=== PATIENT | female | born 1985 | race Caucasian/White ===

== ENCOUNTER 2017-03-21 02:55 | Inpatient (IN) | payer MEDICAID ==
[2017-03-21] MEDS ORDERED: Misoprostol 25 MCG (1/4 of 100 MCG) Tab ONE (07:47)
[2017-03-21] MEDS: Misoprostol 25 MCG (1/4 of 100 MCG) Tab VAG SCH ×2 (07:50→11:15)
--- NOTE | 2017-03-21 08:00 | PCM.LDHP ---
L&D History of Present Illness - General Date of Service: 03/21/17 Admit Problem/Dx: Admission Diagnosis/Problem Admission Diagnosis/Problem Source of Information: Patient History Limitations: Reports: No Limitations - History of Present Illness Introduction:: 31 y/o ALIYA 03/28/2017 EGJoann [id number] presented to L&D for induction GBS negative. Lives in [place]. Blood type AB antibody screen negative Rh+ initial hemoglobin hematocrit on 10/17/1711.2/35.7 platelets 334,000. Rubella immune serology nonreactive original urine culture showed Gardnerella vaginalis treated. Hepatitis B surface antigen and HIV negative. GC and chlamydia probe negative. One hour OB glucose screen 111/16/17/119. Hemoglobin hematocrit 11.2 and 33.5 platelets 349,000. Group B strep negative as noted above. Plan induction and delivery. 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 [employer]IVE History: Reports: Social & Family History - Family History Endocrine/Metabolic: Reports: Diabetes, type II (Mother) - Tobacco Use Smoking Status *Q: Current Every Day Smoker Years of Tobacco use: 12 Packs/Tins Daily: 0.1 - Recreational Drug Use Recreational Drug Use: No H&P Review of Systems - Review of Systems: Review Of Systems: See Below General: Reports: No Symptoms HEENT: Reports: No Symptoms Pulmonary: Reports: No Symptoms Cardiovascular: Reports: No Symptoms Gastrointestinal: Reports: No Symptoms Genitourinary: Reports: No Symptoms Musculoskeletal: Reports: No Symptoms Skin: Reports: No Symptoms Psychiatric: Reports: No Symptoms Neurological: Reports: No Symptoms Hematologic/Lymphatic: Reports: No Symptoms Immunologic: Reports: No Symptoms L&D Exam - Exam Exam: See Below - OB Specific Fundal Height In cm: 39 Movement: Active Heart Tones: Present Heart Tones per Min: 135 Heart Rate (FHR) Variability: Moderate (6-25 bmp) Presentation: Vertex - Lazaro Score Lazaro Score Cervix Position: Posterior Lazaro Score Consistency: Soft Lazaro Score Effacement: 31-50% Lazaro Score Dilation: 1-2 cm Lazaro Score Infant's Station: -2 Lazaro Score Total: 5 - Exam General: Alert, Oriented HEENT: Conjunctiva Clear, Mucosa Moist & Rumsey, TMs Clear, PERRLA Neck: Supple, Trachea Midline Lungs: Clear to Auscultation, Normal Respiratory Effort Cardiovascular: Regular Rate, Regular Rhythm GI/Abdominal Exam: Normal Bowel Sounds, Soft, Non-Tender, No Organomegaly, No Distention, No Abnormal Bruit, No Mass, Pelvis Stable Genitourinary: Normal external exam, Normal bimanual exam, Normal speculum exam Extremities: Normal Inspection, Normal Range of Motion, Non-Tender, No Pedal Edema, Normal Capillary Refill Skin: Warm, Dry, Intact Neurological: Reflexes Equal Bilateral Psychiatric: Alert, Normal Affect, Normal Mood - Problem List (1) 39 weeks gestation of SNOMED Code(s): 62483298 ICD Code: Z3A.39 - 39 WEEKS GESTATION OF Status: Acute Current Visit: Yes Problem List Initiated/Reviewed/Updated: No Assessment/Plan Comment:: Induction and delivery.
[2017-03-21] MEDS ORDERED: Ondansetron 4 MG/2 ML SDV IVPUSH PRN (08:36)
[2017-03-21] MEDS ORDERED: Lidocaine 1% 50 ML MDV INJECT PRN (08:36)
[2017-03-21] MEDS ORDERED: Aluminum Hydroxide/Magnesium Hydroxide/Simethicone Susp 30 ML Cup PO PRN (08:36)
[2017-03-21] MEDS ORDERED: Nalbuphine 20 MG/1 ML Amp IVPUSH PRN (08:36)
[2017-03-21] MEDS ORDERED: ePHEDrine 50 MG/ML SDV IVPUSH PRN (10:39)
[2017-03-21] MEDS ORDERED: fentaNYL 100 MCG/2 ML SDV EPIDUR PRN (10:39)
[2017-03-21] MEDS ORDERED: diphenhydrAMINE 50 MG/ML SDV IVPUSH PRN (10:39)
[2017-03-21] MEDS ORDERED: Bupivacaine/fentaNYL/NS 100 ML Bag EPIDUR SCH (10:45)
--- NOTE | 2017-03-21 10:50 | PCM.PREANE ---
Preanesthetic Assessment - Anesthesia/Transfusion/Family Hx Anesthesia History: No Prior Anesthesia Family History of Anesthesia Reaction: No Transfusion History: No Prior Transfusion(s) - Review of Systems General: No Symptoms Pulmonary: No Symptoms Cardiovascular: No Symptoms Gastrointestinal: Other (Heart burn with pregnacny) Neurological: No Symptoms Other: Reports: None - Physical Assessment O2 Sat by Pulse Oximetry: 99 Respiratory Rate: 16 Vital Signs: Last Vital Signs Temp 36.3 C 03/21/17 08:36 Pulse 84 03/21/17 08:36 Resp 16 03/21/17 08:36 BP 138/87 03/21/17 08:36 Pulse Ox 99 03/21/17 08:36 Height: 1.75 m Weight: 95.753 kg ASA Class: 2 Mental Status: Alert & Oriented x3 Airway Class: Mallampati = 1 Dentition: Reports: Normal Dentition Thyro-Mental Finger Breadths: 3 Mouth Opening Finger Breadths: 3 ROM/Head Extension: Full Lungs: Clear to Auscultation, Normal Respiratory Effort Cardiovascular: Regular Rate, Regular Rhythm - Lab Values: Laboratory Last Values WBC 8.39 K/mm3 (3.98-10.04) 03/21/17 07:30 RBC 3.73 M/mm3 (3.98-5.22) L 03/21/17 07:30 Hgb 11.2 gm/L (11.2-15.7) 03/21/17 07:30 Hct 33.8 % (34.1-44.9) L 03/21/17 07:30 MCV 90.6 fl (79.4-94.8) 03/21/17 07:30 MCH 30.0 pg (25.6-32.2) 03/21/17 07:30 MCHC 33.1 g/dl (32.2-35.5) 03/21/17 07:30 RDW Std Deviation 46.6 fL (36.4-46.3) H 03/21/17 07:30 Plt Count 273 K/mm3 (182-369) 03/21/17 07:30 MPV 11.7 fl (9.4-12.3) 03/21/17 07:30 Neut % (Auto) 74.3 % (34.0-71.1) H 03/21/17 07:30 Lymph % (Auto) 17.9 % (19.3-51.7) L 03/21/17 07:30 [place] % (Auto) 6.0 % (4.7-12.5) 03/21/17 07:30 Eos % (Auto) 1.4 (0.7-5.8) 03/21/17 07:30 Baso % (Auto) 0.2 % (0.1-1.2) 03/21/17 07:30 Neut # (Auto) 6.23 K/mm3 (1.56-6.13) H 03/21/17 07:30 Lymph # (Auto) 1.50 K/mm3 (1.18-3.74) 03/21/17 07:30 [place] # (Auto) 0.50 K/mm3 (0.24-0.36) H 03/21/17 07:30 Eos # (Auto) 0.12 K/mm3 (0.04-0.36) 03/21/17 07:30 Baso # (Auto) 0.02 K/mm3 (0.01-0.08) 03/21/17 07:30 Blood Type AB POSITIVE 03/21/17 07:30 Gel Antibody Screen Negative 03/21/17 07:30 - Allergies Allergies/Adverse Reactions: Allergies Allergy/AdvReac Type Severity Reaction Status Date / Time No Known Allergies Allergy Verified 03/20/17 16:07 - Acknowledgements Anesthesia Type Planned: Epidural Pt an Appropriate Candidate for the Planned Anesthesia: Yes Alternatives and Risks of Anesthesia Discussed w Pt/Guardian: Yes Pt/Guardian Understands and Agrees with Anesthesia Plan: Yes PreAnesthesia Questionnaire - Past Health History Medical/Surgical History: Denies 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: - SUBSTANCE USE Smoking Status *Q: Former Smoker Tobacco Use Within Last Twelve Months: Cigarettes Recreational Drug Use History: No - HOME MEDS Home Medications: Home Meds Vit W-Ca,Fe,FA(<1 mg) [ Vitamins] 1 tab PO DAILY 03/21/17 [ History] - CURRENT (IN HOUSE) MEDS Current Meds: Current Medications Al Hydroxide/Mg Hydroxide (Mag-Al Plus) 30 ml PO Q8H PRN PRN Reason: Heartburn Diphenhydramine HCl (Benadryl) 25 mg IVPUSH Q6H PRN PRN Reason: Pruritis Ephedrine Sulfate (Ephedrine Sulfate) 5 mg IVPUSH ASDIRECTED PRN PRN Reason: Hypotension Fentanyl (Sublimaze) 100 mcg EPIDUR ONETIME PRN PRN Reason: Pain Fentanyl/Bupivacaine HCl (Fentanyl/Bupivacaine/Ns 2 Mcg-0.125% 100 Ml) 100 ml EPIDUR ASDIRECTED [facility] Lactated Ringer's (Ringers, Lactated) 1,000 mls @ 100 mls/hr IV ASDIRECTED [facility] Oxytocin 20 unit/ Lactated (Ringer's) 1,002 mls @ 500 mls/hr IV TITRATE [facility] Lidocaine HCl (Xylocaine 1%) 50 ml INJECT ONETIME PRN PRN Reason: perineal repair Misoprostol (Cytotec) 25 mcg VAG Q3H [facility] Stop: 03/21/17 11:01 Nalbuphine HCl (Nubain) 10 mg IVPUSH Q2H PRN PRN Reason: Pain (moderate 4-6) Ondansetron HCl (Zofran) 4 mg IVPUSH Q4H PRN PRN Reason: Nausea/Vomiting Discontinued Medications Misoprostol (Cytotec) Confirm Administered Dose 25 mcg .ROUTE .STAsseta-MED ONE Stop: 03/21/17 07:48 Last Admin: 03/21/17 09:16 Dose: Not Given
--- NOTE | 2017-03-21 13:11 | PCM.SN ---
- Free Text/Narrative Note: Cervix 1-2, 70% effaced, soft, posterior, vertex-2. Had second dose of Cytotec earlier.
[2017-03-21] MEDS: Lactated Ringers 1,000 ML IV SCH ×3 (13:55→23:12)
[2017-03-21] MEDS ORDERED: Oxytocin/Lactated Ringers 10 UNIT/1,000 ML BAG IV SCH (14:00)
--- NOTE | 2017-03-21 15:24 | PCM.SN ---
- Free Text/Narrative Note: Cervix 2-3/70%/Soft/posterior/vertex -1/-2 Amniotomy 1520 clear fluid. At 2 miu/ min.
[2017-03-21] MEDS ORDERED: Bupivacaine 0.25% 10 ML SDV ONE (22:22)
[2017-03-22] MEDS ORDERED: Lidocaine 1% 50 ML MDV ONE (02:57)
--- NOTE | 2017-03-22 03:20 | PCM.DEL ---
L & D Note - General Info Date of Service: 03/22/17 Mother's Due Date: 03/28/17 - Delivery Note Labor: Augmented by Oxytocin Cervical Ripening Method: Misoprostil (5 g 2) Delivery Outcome: Livebirth (Female liveborn 03/22/17 at 0255 hrs. direct occiput posterior Apgars 10/28 weight 3170 grams 7 pounds) Infant Delivery Method: Spontaneous Vaginal Delivery-Single Infant Delivery Mode: Spontaneous Presentation: Occiput posterior Nuchal Cord: None Prep: Povidone-Iodine (Betadine Anesthesia Type: Local, Epidural Anesthetic: Lidocaine (Xylocaine) 1% Plain Local Anesthetic Volume: 5cc Amniotic Fluid Description: Clear Episiotomy Type: None Laceration: 1st Degree Suture type: Other (Monocryl) Suture size: 3-0 Placenta: Intact, Spontaneous (0301 hrs. 03/22/17) Cord: 3 Vessels Estimated Blood Loss: 250 : Suctioned, Bulb Syringe, Stimulated, Warmed, [place] Used, Warmer Used Provider: Matti Dumont Score 1 min: 9 Score 5 min: 9 - Patient Data Vitals - Most Recent: Last Vital Signs Temp 97.4 F 03/21/17 08:36 Pulse 84 03/21/17 08:36 Resp 16 03/21/17 10:53 BP 138/87 03/21/17 08:36 Pulse Ox 99 03/21/17 10:53 Weight - Most Recent: 211 lb 1.6 oz Lab Results Last 24 Hours: Laboratory Results - last 24 hr 03/21/17 03/21/17 Range/Units 07:30 07:30 WBC 8.39 (3.98-10.04) K/mm3 RBC 3.73 L (3.98-5.22) M/mm3 Hgb 11.2 (11.2-15.7) gm/L Hct 33.8 L (34.1-44.9) % MCV 90.6 (79.4-94.8) fl MCH 30.0 (25.6-32.2) pg MCHC 33.1 (32.2-35.5) g/dl RDW Std Deviation 46.6 H (36.4-46.3) fL Plt Count 273 (182-369) K/mm3 MPV 11.7 (9.4-12.3) fl Neut % (Auto) 74.3 H (34.0-71.1) % Lymph % (Auto) 17.9 L (19.3-51.7) % [facility] % (Auto) 6.0 (4.7-12.5) % Eos % (Auto) 1.4 (0.7-5.8) Baso % (Auto) 0.2 (0.1-1.2) % Neut # (Auto) 6.23 H (1.56-6.13) K/mm3 Lymph # (Auto) 1.50 (1.18-3.74) K/mm3 [facility] # (Auto) 0.50 H (0.24-0.36) K/mm3 Eos # (Auto) 0.12 (0.04-0.36) K/mm3 Baso # (Auto) 0.02 (0.01-0.08) K/mm3 Blood Type AB POSITIVE Gel Antibody Screen Negative Med Orders - Current: Current Medications Al Hydroxide/Mg Hydroxide (Mag-Al Plus) 30 ml PO Q8H PRN PRN Reason: Heartburn Diphenhydramine HCl (Benadryl) 25 mg IVPUSH Q6H PRN PRN Reason: Pruritis Ephedrine Sulfate (Ephedrine Sulfate) 5 mg IVPUSH ASDIRECTED PRN PRN Reason: Hypotension Fentanyl (Sublimaze) 100 mcg EPIDUR ONETIME PRN PRN Reason: Pain Last Admin: 03/21/17 19:17 Dose: 100 mcg Fentanyl/Bupivacaine HCl (Fentanyl/Bupivacaine/Ns 2 Mcg-0.125% 100 Ml) 100 ml EPIDUR ASDIRECTED [facility] Last Admin: 03/21/17 19:19 Dose: 100 ml Lactated Ringer's (Ringers, Lactated) 1,000 mls @ 100 mls/hr IV ASDIRECTED [facility] Last Admin: 03/21/17 23:12 Dose: 100 mls/hr Oxytocin 20 unit/ Lactated (Ringer's) 1,002 mls @ 500 mls/hr IV TITRATE [facility] Oxytocin/Lactated Ringer's (Pitocin In Lr 10 Units/1,000 Ml) 10 unit in 1,000 mls @ 12 mls/hr IV TITRATE [facility]; 2 MUNITS/MIN PRN Reason: Protocol Last Titration: 03/22/17 02:27 Dose: 8 munits/min, 48 mls/hr Lidocaine HCl (Xylocaine 1%) 50 ml INJECT ONETIME PRN PRN Reason: perineal repair Nalbuphine HCl (Nubain) 10 mg IVPUSH Q2H PRN PRN Reason: Pain (moderate 4-6) Last Admin: 03/21/17 18:34 Dose: 10 mg Ondansetron HCl (Zofran) 4 mg IVPUSH Q4H PRN PRN Reason: Nausea/Vomiting Discontinued Medications Lidocaine HCl (Xylocaine 1%) Confirm Administered Dose 50 ml .ROUTE .STK-MED ONE Stop: 03/22/17 02:58 Misoprostol (Cytotec) Confirm Administered Dose 25 mcg .ROUTE .STK-MED ONE Stop: 03/21/17 07:48 Last Admin: 03/21/17 09:16 Dose: Not Given Misoprostol (Cytotec) 25 mcg VAG Q3H [facility] Stop: 03/21/17 11:01 Last Admin: 03/21/17 11:15 Dose: 25 mcg - Problem List & Annotations (1) 39 weeks gestation of SNOMED Code(s): 01151797 Code(s): Z3A.39 - 39 WEEKS GESTATION OF Status: Acute Current Visit: Yes (2) First degree laceration of perineum during delivery, SNOMED Code(s): 093315986 Code(s): O70.0 - FIRST DEGREE PERINEAL LACERATION DURING DELIVERY Status: Acute Current Visit: Yes (3) Occiput posterior presentation of fetus SNOMED Code(s): 84036364 Code(s): O64.0XX0 - OBSTRUCTED LABOR DUE TO INCMPL ROTATION OF HEAD, UNSP Status: Acute Current Visit: Yes Qualifiers: Fetus number: single or unspecified fetus Qualified Code(s): O64.0XX0 - Obstructed labor due to incomplete rotation of head, not applicable or unspecified - Problem List Review Problem List Initiated/Reviewed/Updated: No - My Orders Last 24 Hours: My Active Orders 03/21/17 08:36 Patient Status [ADT] Routine Activity as Tolerated [RC] PFP Communication Order [RC] ASDIRECTED Notify Provider [RC] PFP Notify Provider [RC] PRN Alum Hydrox/Mag Hydrox/Simeth [Mag-Al Plus] 30 ml PO Q8H PRN Lidocaine 1% [Xylocaine 1%] 50 ml INJECT ONETIME PRN Nalbuphine [Nubain] 10 mg IVPUSH Q2H PRN Ondansetron [Zofran] 4 mg IVPUSH Q4H PRN Electronic Heart Tones Ext w TOCO [WOMSER] Routine Electronic Heart Tones Internal [WOMSER] Per Unit Routine Peripheral IV Insertion Adult [OM.PC] Routine Resuscitation Status Routine 03/21/17 08:45 Lactated Ringers [Ringers, Lactated] 1,000 ml IV ASDIRECTED Oxytocin [Pitocin] 20 unit Lactated Ringers [Ringers, Lactated] 1,000 ml IV TITRATE 03/21/17 14:00 Oxytocin/Lactated Ringers [Pitocin in LR 10 Units/1,000 ML] 10 unit in 1,000 ml IV TITRATE 03/21/17 Breakfast Regular Diet [DIET] - Plan Plan:: Induction and delivery.
[2017-03-22] MEDS ORDERED: Acetaminophen 325 MG Tab PO PRN (03:27)
[2017-03-22] MEDS ORDERED: Benzocaine/Menthol 20%-0.5% Spray 56 GM Canister TOP PRN (03:27)
[2017-03-22] MEDS ORDERED: Lanolin 100% Cream 7 GM Tube TOP PRN (03:27)
[2017-03-22] MEDS ORDERED: Witch Hazel Medicated Pads 100/Jar TOP PRN (03:27)
[2017-03-22] MEDS ORDERED: Simethicone 80 MG Tab.Chew PO PRN (03:27)
[2017-03-22] MEDS: Ibuprofen 600 MG Tab PO PRN ×4 (05:04→20:48)
[2017-03-22] MEDS ORDERED: fentaNYL 100 MCG/2 ML SDV IVPUSH ONE (06:17)
[2017-03-22] MEDS ORDERED: Lactated Ringers 1,000 ML IV ONE (06:48)
[2017-03-22] MEDS: Acetaminophen/oxyCODONE 325-5 MG Tab PO PRN ×3 (09:10→18:32)
[2017-03-22] MEDS: Docusate Sodium 100 MG Cap PO PRN (11:17)
--- NOTE | 2017-03-22 14:32 | PCM48HPAN ---
Post Anesthesia Note - EVALUATION WITHIN 48HRS OF ANESTHETIC Vital Signs in Normal Range: Yes Patient Participated in Evaluation: Yes Respiratory Function Stable: Yes Airway Patent: Yes Cardiovascular Function Stable: Yes Hydration Status Stable: Yes Pain Control Satisfactory: No Nausea and Vomiting Control Satisfactory: Yes Mental Status Recovered: Yes - COMMENTS/OBSERVATIONS Free Text/Narrative:: Patient complained of a headache today shortly after her epidural catheter was discontinued. Upon arrival the patient was sleeping on her left lateral side. She did complain of a headache that worsened when she sat up from the supine position. She stated she is photophobic. She stated she has had headaches in the past and this one feels very different from any previous headaches. She also said the pain medication she has been receiving does not help much with resolving the headache at all. Her symptoms sound pretty typical of a PDPH. I mentioned to drink more fluids especially ones with caffeine. I had also mentioned to her about the possibility of a epidural blood patch if her headache increases in intensity and does not resolve itself in a couple days. So far the patient is not interested at all in the blood patch due to her "terrible" experience for the initial insertion. But now she is educated on her options of treatment. Will continue to monitor her tomorrow. Sourav Rhodes, TANVIR
[2017-03-22] MEDS: Cyclobenzaprine 10 MG Tab PO PRN (21:45)
[2017-03-23] MEDS: Acetaminophen/oxyCODONE 325-5 MG Tab PO PRN ×3 (01:53→12:42)
[2017-03-23] MEDS: Docusate Sodium 100 MG Cap PO PRN (01:54)
[2017-03-23 02:13] VITALS: BP 118/62
[2017-03-23] MEDS: Cyclobenzaprine 10 MG Tab PO PRN (08:22)
[2017-03-23] MEDS: Ibuprofen 600 MG Tab PO PRN (10:17)
--- NOTE | 2017-03-23 12:01 | PCM.DCSUM1 ---
Discharge Summary - Hospital Course Free Text/Narrative:: [facility] LIVE L/D Delivery Note Patient Name: JOURDAN SUMNER Date of : 85 Patient Status: Inpatient Attending Provider: Matti Dumont Date: 03/22/17 03:14 Initialization Date: 03/22/17 03:14 L & D Note - General Info Date of Service: 03/22/17 Mother's Due Date: 03/28/17 - Delivery Note Labor: Augmented by Oxytocin Cervical Ripening Method: Misoprostil (5 g 2) Delivery Outcome: Livebirth (Female liveborn 03/22/17 at 0255 hrs. direct occiput posterior Apgars 10/28 weight 3170 grams 7 pounds) Infant Delivery Method: Spontaneous Vaginal Delivery-Single Infant Delivery Mode: Spontaneous Presentation: Occiput posterior Nuchal Cord: None Prep: Povidone-Iodine (Betadine Anesthesia Type: Local, Epidural Anesthetic: Lidocaine (Xylocaine) 1% Plain Local Anesthetic Volume: 5cc Amniotic Fluid Description: Clear Episiotomy Type: None Laceration: 1st Degree Suture type: Other (Monocryl) Suture size: 3-0 Placenta: Intact, Spontaneous (0301 hrs. 03/22/17) Cord: 3 Vessels Estimated Blood Loss: 250 [place]: Suctioned, Bulb Syringe, Stimulated, Warmed, [place] Used, Warmer Used Provider: Matti Dumont Score 1 min: 9 Score 5 min: 9 - Patient Data Vitals - Most Recent: Last Vital Signs Temp 97.4 F 03/21/17 08:36 Pulse 84 03/21/17 08:36 Resp 16 03/21/17 10:53 BP 138/87 03/21/17 08:36 Pulse Ox 99 03/21/17 10:53 Weight - Most Recent: 211 lb 1.6 oz Lab Results Last 24 Hours: Laboratory Results - last 24 hr 03/21/17 03/21/17 Range/Units 07:30 07:30 WBC 8.39 (3.98-10.04) K/mm3 RBC 3.73 L (3.98-5.22) M/mm3 Hgb 11.2 (11.2-15.7) gm/L Hct 33.8 L (34.1-44.9) % MCV 90.6 (79.4-94.8) fl MCH 30.0 (25.6-32.2) pg MCHC 33.1 (32.2-35.5) g/dl RDW Std Deviation 46.6 H (36.4-46.3) fL Plt Count 273 (182-369) K/mm3 MPV 11.7 (9.4-12.3) fl Neut % (Auto) 74.3 H (34.0-71.1) % Lymph % (Auto) 17.9 L (19.3-51.7) % [place] % (Auto) 6.0 (4.7-12.5) % Eos % (Auto) 1.4 (0.7-5.8) Baso % (Auto) 0.2 (0.1-1.2) % Neut # (Auto) 6.23 H (1.56-6.13) K/mm3 Lymph # (Auto) 1.50 (1.18-3.74) K/mm3 [place] # (Auto) 0.50 H (0.24-0.36) K/mm3 Eos # (Auto) 0.12 (0.04-0.36) K/mm3 Baso # (Auto) 0.02 (0.01-0.08) K/mm3 Blood Type AB POSITIVE Gel Antibody Screen Negative Med Orders - Current: Current Medications Al Hydroxide/Mg Hydroxide (Mag-Al Plus) 30 ml PO Q8H PRN PRN Reason: Heartburn Diphenhydramine HCl (Benadryl) 25 mg IVPUSH Q6H PRN PRN Reason: Pruritis Ephedrine Sulfate (Ephedrine Sulfate) 5 mg IVPUSH ASDIRECTED PRN PRN Reason: Hypotension Fentanyl (Sublimaze) 100 mcg EPIDUR ONETIME PRN PRN Reason: Pain Last Admin: 03/21/17 19:17 Dose: 100 mcg Fentanyl/Bupivacaine HCl (Fentanyl/Bupivacaine/Ns 2 Mcg-0.125% 100 Ml) 100 ml EPIDUR ASDIRECTED [facility] Last Admin: 03/21/17 19:19 Dose: 100 ml Lactated Ringer's (Ringers, Lactated) 1,000 mls @ 100 mls/hr IV ASDIRECTED [facility] Last Admin: 03/21/17 23:12 Dose: 100 mls/hr Oxytocin 20 unit/ Lactated (Ringer's) 1,002 mls @ 500 mls/hr IV TITRATE NVAIN Oxytocin/Lactated Ringer's (Pitocin In Lr 10 Units/1,000 Ml) 10 unit in 1,000 mls @ 12 mls/hr IV TITRATE NAVIN; 2 MUNITS/MIN PRN Reason: Protocol Last Titration: 03/22/17 02:27 Dose: 8 munits/min, 48 mls/hr Lidocaine HCl (Xylocaine 1%) 50 ml INJECT ONETIME PRN PRN Reason: perineal repair Nalbuphine HCl (Nubain) 10 mg IVPUSH Q2H PRN PRN Reason: Pain (moderate 4-6) Last Admin: 03/21/17 18:34 Dose: 10 mg Ondansetron HCl (Zofran) 4 mg IVPUSH Q4H PRN PRN Reason: Nausea/Vomiting Discontinued Medications Lidocaine HCl (Xylocaine 1%) Confirm Administered Dose 50 ml .ROUTE .STK-MED ONE Stop: 03/22/17 02:58 Misoprostol (Cytotec) Confirm Administered Dose 25 mcg .ROUTE .STK-MED ONE Stop: 03/21/17 07:48 Last Admin: 03/21/17 09:16 Dose: Not Given Misoprostol (Cytotec) 25 mcg VAG Q3H [facility] Stop: 03/21/17 11:01 Last Admin: 03/21/17 11:15 Dose: 25 mcg - Problem List & Annotations (1) 39 weeks gestation of SNOMED Code(s): 55438564 Code(s): Z3A.39 - 39 WEEKS GESTATION OF Status: Acute Current Visit: Yes (2) First degree laceration of perineum during delivery, SNOMED Code(s): 987050764 Code(s): O70.0 - FIRST DEGREE PERINEAL LACERATION DURING DELIVERY Status: Acute Current Visit: Yes (3) Occiput posterior presentation of fetus SNOMED Code(s): 55034805 Code(s): O64.0XX0 - OBSTRUCTED LABOR DUE TO INCMPL ROTATION OF HEAD, UNSP Status: Acute Current Visit: Yes Qualifiers: Fetus number: single or unspecified fetus Qualified Code(s): O64.0XX0 - Obstructed labor due to incomplete rotation of head, not applicable or unspecified - Problem List Review Problem List Initiated/Reviewed/Updated: No - My Orders Last 24 Hours: My Active Orders 03/21/17 08:36 Patient Status [ADT] Routine Activity as Tolerated [RC] PFP Communication Order [RC] ASDIRECTED Notify Provider [RC] PFP Notify Provider [RC] PRN Alum Hydrox/Mag Hydrox/Simeth [Mag-Al Plus] 30 ml PO Q8H PRN Lidocaine 1% [Xylocaine 1%] 50 ml INJECT ONETIME PRN Nalbuphine [Nubain] 10 mg IVPUSH Q2H PRN Ondansetron [Zofran] 4 mg IVPUSH Q4H PRN Electronic Heart Tones Ext w TOCO [WOMSER] Routine Electronic Heart Tones Internal [WOMSER] Per Unit Routine Peripheral IV Insertion Adult [OM.PC] Routine Resuscitation Status Routine 03/21/17 08:45 Lactated Ringers [Ringers, Lactated] 1,000 ml IV ASDIRECTED Oxytocin [Pitocin] 20 unit Lactated Ringers [Ringers, Lactated] 1,000 ml IV TITRATE 03/21/17 14:00 Oxytocin/Lactated Ringers [Pitocin in LR 10 Units/1,000 ML] 10 unit in 1,000 ml IV TITRATE 03/21/17 Breakfast Regular Diet [DIET] - Plan Plan:: Induction and delivery. HPI Initial Comments: [facility] LIVE L/D Delivery Note Patient Name: JOURDAN SUMNER Date of : 85 Patient Status: Inpatient Attending Provider: Matti Dumont Date: 03/22/17 03:14 Initialization Date: 03/22/17 03:14 L & D Note - General Info Date of Service: 03/22/17 Mother's Due Date: 03/28/17 - Delivery Note Labor: Augmented by Oxytocin Cervical Ripening Method: Misoprostil (5 g 2) Delivery Outcome: Livebirth (Female liveborn 03/22/17 at 0255 hrs. direct occiput posterior Apgars 9/9 weight 3170 grams 7 pounds) Delivery Method: Spontaneous Vaginal Delivery-Single Delivery Mode: Spontaneous Presentation: Occiput posterior Nuchal Cord: None Prep: Povidone-Iodine (Betadine Anesthesia Type: Local, Epidural Anesthetic: Lidocaine (Xylocaine) 1% Plain Local Anesthetic Volume: 5cc Amniotic Fluid Description: Clear Episiotomy Type: None Laceration: 1st Degree Suture type: Other (Monocryl) Suture size: 3-0 Placenta: Intact, Spontaneous (0301 hrs. 03/22/17) Cord: 3 Vessels Estimated Blood Loss: 250 [place]: Suctioned, Bulb Syringe, Stimulated, Warmed, [place] Used, Warmer Used Provider: Matti Dumont Score 1 min: 9 Score 5 min: 9 - Patient Data Vitals - Most Recent: Last Vital Signs Temp 97.4 F 03/21/17 08:36 Pulse 84 03/21/17 08:36 Resp 16 03/21/17 10:53 BP 138/87 03/21/17 08:36 Pulse Ox 99 03/21/17 10:53 Weight - Most Recent: 211 lb 1.6 oz Lab Results Last 24 Hours: Laboratory Results - last 24 hr 03/21/17 03/21/17 Range/Units 07:30 07:30 WBC 8.39 (3.98-10.04) K/mm3 RBC 3.73 L (3.98-5.22) M/mm3 Hgb 11.2 (11.2-15.7) gm/L Hct 33.8 L (34.1-44.9) % MCV 90.6 (79.4-94.8) fl MCH 30.0 (25.6-32.2) pg MCHC 33.1 (32.2-35.5) g/dl RDW Std Deviation 46.6 H (36.4-46.3) fL Plt Count 273 (182-369) K/mm3 MPV 11.7 (9.4-12.3) fl Neut % (Auto) 74.3 H (34.0-71.1) % Lymph % (Auto) 17.9 L (19.3-51.7) % [place] % (Auto) 6.0 (4.7-12.5) % Eos % (Auto) 1.4 (0.7-5.8) Baso % (Auto) 0.2 (0.1-1.2) % Neut # (Auto) 6.23 H (1.56-6.13) K/mm3 Lymph # (Auto) 1.50 (1.18-3.74) K/mm3 [place] # (Auto) 0.50 H (0.24-0.36) K/mm3 Eos # (Auto) 0.12 (0.04-0.36) K/mm3 Baso # (Auto) 0.02 (0.01-0.08) K/mm3 Blood Type AB POSITIVE Gel Antibody Screen Negative Med Orders - Current: Current Medications Al Hydroxide/Mg Hydroxide (Mag-Al Plus) 30 ml PO Q8H PRN PRN Reason: Heartburn Diphenhydramine HCl (Benadryl) 25 mg IVPUSH Q6H PRN PRN Reason: Pruritis Ephedrine Sulfate (Ephedrine Sulfate) 5 mg IVPUSH ASDIRECTED PRN PRN Reason: Hypotension Fentanyl (Sublimaze) 100 mcg EPIDUR ONETIME PRN PRN Reason: Pain Last Admin: 03/21/17 19:17 Dose: 100 mcg Fentanyl/Bupivacaine HCl (Fentanyl/Bupivacaine/Ns 2 Mcg-0.125% 100 Ml) 100 ml EPIDUR ASDIRECTED NAVIN Last Admin: 03/21/17 19:19 Dose: 100 ml Lactated Ringer's (Ringers, Lactated) 1,000 mls @ 100 mls/hr IV ASDIRECTED NAVIN Last Admin: 03/21/17 23:12 Dose: 100 mls/hr Oxytocin 20 unit/ Lactated (Ringer's) 1,002 mls @ 500 mls/hr IV TITRATE NAVIN Oxytocin/Lactated Ringer's (Pitocin In Lr 10 Units/1,000 Ml) 10 unit in 1,000 mls @ 12 mls/hr IV TITRATE NAVIN; 2 MUNITS/MIN PRN Reason: Protocol Last Titration: 03/22/17 02:27 Dose: 8 munits/min, 48 mls/hr Lidocaine HCl (Xylocaine 1%) 50 ml INJECT ONETIME PRN PRN Reason: perineal repair Nalbuphine HCl (Nubain) 10 mg IVPUSH Q2H PRN PRN Reason: Pain (moderate 4-6) Last Admin: 03/21/17 18:34 Dose: 10 mg Ondansetron HCl (Zofran) 4 mg IVPUSH Q4H PRN PRN Reason: Nausea/Vomiting Discontinued Medications Lidocaine HCl (Xylocaine 1%) Confirm Administered Dose 50 ml .ROUTE .STK-MED ONE Stop: 03/22/17 02:58 Misoprostol (Cytotec) Confirm Administered Dose 25 mcg .ROUTE .STK-MED ONE Stop: 03/21/17 07:48 Last Admin: 03/21/17 09:16 Dose: Not Given Misoprostol (Cytotec) 25 mcg VAG Q3H NAVIN Stop: 03/21/17 11:01 Last Admin: 03/21/17 11:15 Dose: 25 mcg - Problem List & Annotations (1) 39 weeks gestation of SNOMED Code(s): 42042048 Code(s): Z3A.39 - 39 WEEKS GESTATION OF Status: Acute Current Visit: Yes (2) First degree laceration of perineum during delivery, SNOMED Code(s): 639227582 Code(s): O70.0 - FIRST DEGREE PERINEAL LACERATION DURING DELIVERY Status: Acute Current Visit: Yes (3) Occiput posterior presentation of fetus SNOMED Code(s): 51499424 Code(s): O64.0XX0 - OBSTRUCTED LABOR DUE TO INCMPL ROTATION OF HEAD, UNSP Status: Acute Current Visit: Yes Qualifiers: Fetus number: single or unspecified fetus Qualified Code(s): O64.0XX0 - Obstructed labor due to incomplete rotation of head, not applicable or unspecified - Problem List Review Problem List Initiated/Reviewed/Updated: No - My Orders Last 24 Hours: My Active Orders 03/21/17 08:36 Patient Status [ADT] Routine Activity as Tolerated [RC] PFP Communication Order [RC] ASDIRECTED Notify Provider [RC] PFP Notify Provider [RC] PRN Alum Hydrox/Mag Hydrox/Simeth [Mag-Al Plus] 30 ml PO Q8H PRN Lidocaine 1% [Xylocaine 1%] 50 ml INJECT ONETIME PRN Nalbuphine [Nubain] 10 mg IVPUSH Q2H PRN Ondansetron [Zofran] 4 mg IVPUSH Q4H PRN Electronic Heart Tones Ext w TOCO [WOMSER] Routine Electronic Heart Tones Internal [WOMSER] Per Unit Routine Peripheral IV Insertion Adult [OM.PC] Routine Resuscitation Status Routine 03/21/17 08:45 Lactated Ringers [Ringers, Lactated] 1,000 ml IV ASDIRECTED Oxytocin [Pitocin] 20 unit Lactated Ringers [Ringers, Lactated] 1,000 ml IV TITRATE 03/21/17 14:00 Oxytocin/Lactated Ringers [Pitocin in LR 10 Units/1,000 ML] 10 unit in 1,000 ml IV TITRATE 03/21/17 Breakfast Regular Diet [DIET] - Plan Plan:: Induction and delivery. Brief History: [facility] LIVE . L/D Delivery Note. Patient Name: JOURDAN SUMNER [facility] Record Number: [id number]. Date of : Patient Status: Inpatient. Attending Provider: Matti Dumont Number: [id number]. Date: 03/22/17 03:14Initialization Date: 03/22/17 03:14. L & D Note. - General Info. Date of Service: 03/22/17. Mother's Due Date: 03/28/17. - Delivery Note. Labor: Augmented by Oxytocin. Cervical Ripening Method: Misoprostil (5 g 2). Delivery Outcome: Livebirth (Female liveborn 03/22 at 0255 hrs. direct occiput posterior Apgars 9/9 weight 3170 grams 7 pounds). Delivery Method: Spontaneous Vaginal Delivery-Single. Delivery Mode: Spontaneous. Presentation: Occiput posterior. Nuchal Cord: None. Prep: Povidone-Iodine (Betadine. Anesthesia Type: Local, Epidural. Anesthetic: Lidocaine (Xylocaine) 1% Plain. Local Anesthetic Volume : 5cc. Amniotic Fluid Description: Clear. Episiotomy Type: None. Laceration: 1st Degree. Suture type: Other (Monocryl). Suture size: 3-0. Placenta: Intact , Spontaneous (0301 hrs. 03/22/17). Cord: 3 Vessels. Estimated Blood Loss: 250. : Suctioned, Bulb Syringe, Stimulated, Warmed, [place] Used, Warmer Used. Provider: Matti Dumont. Score 1 min: 9. Score 5 min: 9. - Patient Data. Vitals - Most Recent: Last Vital Signs. Temp 97.4 F 03/21/17 08:36. Pulse 84 03/21/17 08:36. Resp 16 10:53. BP 138/87 03/21/17 08:36. Pulse Ox 99 03/21/17 10:53. Weight - Most Recent: 211 lb 1.6 oz. Lab Results Last 24 Hours: Laboratory Results - last 24 hr. 03/21/1800Range/Units. 07:3007:30. WBC 8.39 (3.98-10.04) K /mm3. RBC 3.73 L (3.98-5.22) M/mm3. Hgb 11.2 (11.2-15.7) gm/L. Hct 33.8 L ( 34.1-44.9) %. MCV 90.6 (79.4-94.8) fl. MCH 30.0 (25.6-32.2) pg. MCHC 33.1 (32.2-35.5) g/dl. RDW Std Deviation 46.6 H (36.4-46.3) fL. Plt Count 273 ( 182-369) K/mm3. MPV 11.7 (9.4-12.3) fl. Neut % (Auto) 74.3 H (34.0-71.1) % . Lymph % (Auto) 17.9 L (19.3-51.7) %. [place] % (Auto) 6.0 (4.7-12.5) %. Eos % (Auto) 1.4 (0.7-5.8). Baso % (Auto) 0.2 (0.1-1.2) %. Neut # (Auto) 6.23 H ( 1.56-6.13) K/mm3. Lymph # (Auto) 1.50 (1.18-3.74) K/mm3. [place] # (Auto) 0.50 H (0.24-0.36) K/mm3. Eos # (Auto) 0.12 (0.04-0.36) K/mm3. Baso # (Auto) 0.02 (0.01-0.08) K/mm3. Blood Type AB POSITIVE. Gel Antibody Screen Negative. Med Orders - Current: Current Medications. Al Hydroxide/Mg Hydroxide (Mag-Al Plus) 30 ml PO Q8H PRN. PRN Reason: Heartburn. Diphenhydramine HCl (Benadryl) 25 mg IVPUSH Q6H PRN. PRN Reason: Pruritis. Ephedrine Sulfate (Ephedrine Sulfate) 5 mg IVPUSH ASDIRECTED PRN. PRN Reason: Hypotension. Fentanyl (Sublimaze) 100 mcg EPIDUR ONETIME PRN. PRN Reason: Pain. Last Admin: 03/21/17 19:17 Dose: 100 mcg. Fentanyl/Bupivacaine HCl ( Fentanyl/Bupivacaine/Ns 2 Mcg-0.125% 100 Ml) 100 ml EPIDUR ASDIRECTED NAVIN. Last Admin: 03/21/17 19:19 Dose: 100 ml. Lactated Ringer's (Ringers, Lactated ) 1,000 mls @ 100 mls/hr IV ASDIRECTED NAVIN. Last Admin: 03/21/17 23:12 Dose: 100 mls/hr. Oxytocin 20 unit/ Lactated (Ringer's) 1,002 mls @ 500 mls/hr IV TITRATE NAVIN. Oxytocin/Lactated Ringer's (Pitocin In Lr 10 Units/1,000 Ml) 10 unit in 1,000 mls @ 12 mls/hr IV TITRATE NAVIN; 2 MUNITS/MIN. PRN Reason: Protocol. Last Titration: 03/22/17 02:27 Dose: 8 munits/min, 48 mls/hr. Lidocaine HCl (Xylocaine 1%) 50 ml INJECT ONETIME PRN. PRN Reason: perineal repair. Nalbuphine HCl (Nubain) 10 mg IVPUSH Q2H PRN. PRN Reason: Pain ( moderate 4-6). Last Admin: 03/21/17 18:34 Dose: 10 mg. Ondansetron HCl ( Zofran) 4 mg IVPUSH Q4H PRN. PRN Reason: Nausea/Vomiting. Discontinued Medications. Lidocaine HCl (Xylocaine 1%) Confirm Administered Dose 50 ml .ROUTE .STK-MED ONE. Stop: 03/22/17 02:58. Misoprostol (Cytotec) Confirm Administered Dose 25 mcg .ROUTE .STK-MED ONE. Stop: 03/21/17 07:48. Last Admin : 03/21/17 09:16 Dose: Not Given. Misoprostol (Cytotec) 25 mcg VAG Q3H NAVIN. Stop: 03/21/17 11:01. Last Admin: 03/21/17 11:15 Dose: 25 mcg. - Problem List & Annotations. (1) 39 weeks gestation of . SNOMED Code(s): 24217375. Code(s): Z3A.39 - 39 WEEKS GESTATION OF Status: Acute Current Visit: Yes. (2) First degree laceration of perineum during delivery, . SNOMED Code(s): 222863796. Code(s): O70.0 - FIRST DEGREE PERINEAL LACERATION DURING DELIVERY Status: Acute Current Visit: Yes. (3) Occiput posterior presentation of fetus. SNOMED Code(s): 17139814. Code(s): O64.0XX0 - OBSTRUCTED LABOR DUE TO INCMPL ROTATION OF HEAD, UNSP Status: Acute Current Visit: Yes. Qualifiers: Fetus number: single or unspecified fetus Qualified Code(s): O64.0XX0 - Obstructed labor due to incomplete rotation of head, not applicable or unspecified. - Problem List Review. Problem List Initiated/Reviewed/Updated: No. - My Orders. Last 24 Hours: My Active Orders. 03/21/17 08:36. Patient Status [ADT] Routine. Activity as Tolerated [ RC] PFP. Communication Order [RC] ASDIRECTED. Notify Provider [RC] PFP. Notify Provider [RC] PRN. Alum Hydrox/Mag Hydrox/Simeth [Mag-Al Plus] 30 ml PO Q8H PRN. Lidocaine 1% [Xylocaine 1%] 50 ml INJECT ONETIME PRN. Nalbuphine [Nubain] 10 mg IVPUSH Q2H PRN. Ondansetron [Zofran] 4 mg IVPUSH Q4H PRN. Electronic Heart Tones Ext w TOCO [WOMSER] Routine. Electronic Heart Tones Internal [WOMSER] Per Unit Routine. Peripheral IV Insertion Adult [OM.PC] Routine. Resuscitation Status Routine. 03/21/17 08:45. Lactated Ringers [Ringers, Lactated] 1,000 ml IV ASDIRECTED. Oxytocin [Pitocin ] 20 unit Lactated Ringers [Ringers, Lactated] 1,000 ml IV TITRATE. 03/21/17 14:00. Oxytocin/Lactated Ringers [Pitocin in LR 10 Units/1,000 ML] 10 unit in 1 ,000 ml IV TITRATE. 03/21/17 Breakfast. Regular Diet [DIET]. - Plan. Plan:: Induction and delivery. - Discharge Data Discharge Date: 03/23/17 Discharge Disposition: Home, Self-Care 01 Condition: Good - Discharge Diagnosis/Problem(s) (1) 39 weeks gestation of SNOMED Code(s): 78850167 ICD Code: Z3A.39 - 39 WEEKS GESTATION OF Status: Acute Current Visit: Yes (2) First degree laceration of perineum during delivery, SNOMED Code(s): 486459803 ICD Code: O70.0 - FIRST DEGREE PERINEAL LACERATION DURING DELIVERY Status: Acute Current Visit: Yes (3) Occiput posterior presentation of fetus SNOMED Code(s): 16375682 ICD Code: O64.0XX0 - OBSTRUCTED LABOR DUE TO INCMPL ROTATION OF HEAD, UNSP Status: Acute Current Visit: Yes Qualifiers: Fetus number: single or unspecified fetus Qualified Code(s): O64.0XX0 - Obstructed labor due to incomplete rotation of head, not applicable or unspecified - Patient Summary/Data Operative Procedure(s) Performed: None Complications: None Consults: None Hospital Course: Uneventful - Patient Instructions Diet: Regular Diet as Tolerated Driving: Do Not Drive (48 hours and for 48 hours after last dose of Percocet or Flexeril) Showering/Bathing: May Shower, No Tub Bathing/Swimming Notify Provider of: Fever, Increased Pain, Swelling and Redness, Drainage, Nausea and/or Vomiting - Discharge Plan Prescriptions/Med Rec: Acetaminophen/oxyCODONE [Percocet 325-5 MG] 1 tab PO Q8H PRN #15 tablet PRN Reason: Pain (Moderate 4-6) Cyclobenzaprine [Flexeril] 10 mg PO TID PRN #50 tablet PRN Reason: Pain Home Medications: Home Meds Vit W-Ca,Fe,FA(<1 mg) [ Vitamins] 1 tab PO DAILY 03/21/17 [ History] Acetaminophen [Tylenol] 650 mg PO Q4H PRN tablet 03/23/17 [Rx] Acetaminophen/oxyCODONE [Percocet 325-5 MG] 1 tab PO Q8H PRN #15 tablet [Rx] Benzocaine/Menthol [Dermoplast Pain Relief [place]] 1 spray TOP ASDIRECTED PRN canister 03/23/17 [Rx] Cyclobenzaprine [Flexeril] 10 mg PO TID PRN #50 tablet 03/23/17 [Rx] Docusate Sodium [Colace] 100 mg PO BID PRN cap 03/23/17 [Rx] Ibuprofen [IJD: Ibuprofen] 600 mg PO Q4H PRN tablet 03/23/17 [Rx] Lanolin [Lansinoh HPA] 1 applic TOP ASDIRECTED PRN tube 03/23/17 [Rx] Simethicone 80 mg PO Q4H PRN tab.chew 03/23/17 [Rx] Patient Handouts: and Mastitis, Home Care Instructions for Mom, Breast Engorgement - Discharge Summary/Plan Comment DC Time >30 min.: No - Patient Data Vitals - Most Recent: Last Vital Signs Temp 97.2 F 03/23/17 01:58 Pulse 82 03/23/17 01:58 Resp 15 03/23/17 01:58 BP 118/62 03/23/17 01:58 Pulse Ox 98 03/23/17 01:58 Weight - Most Recent: 211 lb 1.6 oz I&O - Last 24 hours: Intake & Output 03/22/17 03/23/17 03/23/17 22:59 06:59 14:59 Intake Total 240 Balance 240 HERMINIO Results - Last 24 hrs: Microbiology 03/23/17 10:45 Influenza Type A Antigen Screen - Final Nasal, Left NEGATIVE INFLUENZA A VIRUS AG Influenza Type B Antigen Screen - Final NEGATIVE INFLUENZA B VIRUS AG Med Orders - Current: Current Medications Acetaminophen (Tylenol) 650 mg PO Q4H PRN PRN Reason: mild pain or fever Last Admin: 03/22/17 03:40 Dose: 650 mg Benzocaine/Menthol (Dermoplast Pain Relief [place]) 0 gm TOP ASDIRECTED PRN PRN Reason: Perineal Comfort Measure Cyclobenzaprine HCl (Flexeril) 10 mg PO TID PRN PRN Reason: Pain Last Admin: 03/23/17 08:22 Dose: 10 mg Docusate Sodium (Colace) 100 mg PO BID PRN PRN Reason: Constipation Last Admin: 03/23/17 01:54 Dose: 100 mg Emollient Ointment (Lansinoh Hpa) 0 gm TOP ASDIRECTED PRN PRN Reason: Sore Nipples Ibuprofen (Motrin) 600 mg PO Q4H PRN PRN Reason: Mild pain or fever Last Admin: 03/23/17 10:17 Dose: 600 mg Oxycodone/Acetaminophen (Percocet 325-5 Mg) 2 tab PO Q4H PRN PRN Reason: Pain (moderate 4-6) Last Admin: 03/23/17 08:22 Dose: 2 tab Simethicone (Simethicone) 80 mg PO Q4H PRN PRN Reason: Gas Witch Kaylen (Tucks) 1 pad TOP ASDIRECTED PRN PRN Reason: Hemorrhoid pain Discontinued Medications Al Hydroxide/Mg Hydroxide (Mag-Al Plus) 30 ml PO Q8H PRN PRN Reason: Heartburn Bupivacaine HCl (Sensorcaine-Mpf 0.25%) 10 ml .ROUTE .STK-MED ONE Stop: 03/21/17 22:23 Diphenhydramine HCl (Benadryl) 25 mg IVPUSH Q6H PRN PRN Reason: Pruritis Ephedrine Sulfate (Ephedrine Sulfate) 5 mg IVPUSH ASDIRECTED PRN PRN Reason: Hypotension Fentanyl (Sublimaze) 100 mcg EPIDUR ONETIME PRN PRN Reason: Pain Last Admin: 03/21/17 19:17 Dose: 100 mcg Fentanyl (Sublimaze) 100 mcg IVPUSH ONETIME ONE Stop: 03/22/17 06:18 Last Admin: 03/22/17 06:33 Dose: 100 mcg Fentanyl/Bupivacaine HCl (Fentanyl/Bupivacaine/Ns 2 Mcg-0.125% 100 Ml) 100 ml EPIDUR ASDIRECTED [facility] Last Admin: 03/21/17 19:19 Dose: 100 ml Lactated Ringer's (Ringers, Lactated) 1,000 mls @ 100 mls/hr IV ASDIRECTED [facility] Last Admin: 03/21/17 23:12 Dose: 100 mls/hr Oxytocin 20 unit/ Lactated (Ringer's) 1,002 mls @ 500 mls/hr IV TITRATE [facility] Last Admin: 03/22/17 03:42 Dose: 500 mls/hr Oxytocin/Lactated Ringer's (Pitocin In Lr 10 Units/1,000 Ml) 10 unit in 1,000 mls @ 12 mls/hr IV TITRATE NAVIN; 2 MUNITS/MIN PRN Reason: Protocol Last Titration: 03/22/17 02:56 Dose: 999 mls/hr Lactated Ringer's (Ringers, Lactated) 1,000 mls @ 999 mls/hr IV .BOLUS ONE Stop: 03/22/17 07:48 Last Admin: 03/22/17 08:13 Dose: 999 mls/hr Lidocaine HCl (Xylocaine 1%) 50 ml INJECT ONETIME PRN PRN Reason: perineal repair Last Admin: 03/22/17 03:24 Dose: 50 ml Lidocaine HCl (Xylocaine 1%) Confirm Administered Dose 50 ml .ROUTE .STK-MED ONE Stop: 03/22/17 02:58 Last Admin: 03/22/17 03:26 Dose: Not Given Misoprostol (Cytotec) Confirm Administered Dose 25 mcg .ROUTE .STK-MED ONE Stop: 03/21/17 07:48 Last Admin: 03/21/17 09:16 Dose: Not Given Misoprostol (Cytotec) 25 mcg VAG Q3H NAVIN Stop: 03/21/17 11:01 Last Admin: 03/21/17 11:15 Dose: 25 mcg Nalbuphine HCl (Nubain) 10 mg IVPUSH Q2H PRN PRN Reason: Pain (moderate 4-6) Last Admin: 03/21/17 18:34 Dose: 10 mg Ondansetron HCl (Zofran) 4 mg IVPUSH Q4H PRN PRN Reason: Nausea/Vomiting *Q Meaningful Use (DIS) - VTE *Q VTE Criteria *Q: - Stroke *Q Stroke Criteria *Q: - AMI *Q AMI Criteria *Q:
--- NOTE | 2017-03-23 13:39 | PCM48HPAN ---
Post Anesthesia Note - EVALUATION WITHIN 48HRS OF ANESTHETIC Vital Signs in Normal Range: Yes Patient Participated in Evaluation: Yes Respiratory Function Stable: Yes Airway Patent: Yes Cardiovascular Function Stable: Yes Hydration Status Stable: Yes Pain Control Satisfactory: No Nausea and Vomiting Control Satisfactory: Yes Mental Status Recovered: Yes - COMMENTS/OBSERVATIONS Free Text/Narrative:: Had an extensive conversation with the patient regarding her back pain and headache. Upon arrival the patient was sitting up in bed eating breakfast and complaining of a headache and back pain with the back pain being more bothersome. I asked her if her headache is markedly worse when sitting up and she states it was about the same as when lying down. I asked her to lie down while i was there to evaluate her pain level and after she was positioned, she stated he headache was the same but her back pain felt better. She stated the percocet and NSAIDs only make her tired and do not alleviate either her back pain or headache. Patient also complaining of body aches and bilateral leg weakness. Also complaining of worsening edema in her LE. After evaluating her symptoms, I am not totally convinced she has a PDPH. She described her headache as a dull ache and is more concerned about her back pain than her headache. I educated her that it is not uncommon to have back soreness from an epidural (especially after a traumatic insertion) that may last up until 2 months. I told her to watch the area for S/S of infection and the pain should not get worse over time. I told her the last thing I want to do now is perform a epidural blood patch if we are not certain that she even has a PDPH. All this will do is create more back soreness and may not help with her symptoms. I described the classic symptoms of an PDPH and told her if the symptoms increase over then next few days then present to the ED for a blood patch. The patient was in agreement and did not want a blood patch now either. She stated she wanted to go home today. I instructed her to keep ambulating despite pain to help with the LE edema, blood circulation, and to strengthen her legs. Addressed my concerns with Dr Dumont. Told her to contact the ED or OB over the weekend if she has anymore questions and wants to speak to me because i will be long line teamster. Sourav Rhodes, DOCTOR OF CHIROPRACTIC
== END 2017-03-23 13:25 | disposition home or self-care (01) | DRG 775 ==
LOC: JD.OB 02:55 → OBSVTOIN 03-22 02:55
PROVIDERS: ADMIT Obstetrics & Gynecology; ATTEND Obstetrics & Gynecology
PROC: 10E0XZZ Delivery of Products of Conception, External Approach (ICD-10-PCS; principal; 2017-03-22)
PROC: 3E0P7VZ Introduction of Hormone into Female Reproductive, Via Natural or Artificial Opening (ICD-10-PCS; 2017-03-22)
PROC: 10907ZC Drainage of Amniotic Fluid, Therapeutic from Products of Conception, Via Natural or Artificial Opening (ICD-10-PCS; 2017-03-22)
PROC: 3E033VJ Introduction of Other Hormone into Peripheral Vein, Percutaneous Approach (ICD-10-PCS; 2017-03-22)
PROC: 0HQ9XZZ Repair Perineum Skin, External Approach (ICD-10-PCS; 2017-03-22)
PROC: 00HU33Z Insertion of Infusion Device into Spinal Canal, Percutaneous Approach (ICD-10-PCS; 2017-03-22)
PROC: 3E0R3BZ Introduction of Anesthetic Agent into Spinal Canal, Percutaneous Approach (ICD-10-PCS; 2017-03-22)
DX: O99.334 Smoking (tobacco) complicating childbirth (principal); O70.0 First degree perineal laceration during delivery; O64.0XX0 Obstructed labor due to incomplete rotation of fetal head, not applicable or unspecified; Z3A.39 39 weeks gestation of pregnancy; Z37.0 Single live birth
CPT/HCPCS: 36415; 51701; 51702; 59300; 59409; 85025; 85027; 86850; 86900; 86901; 87804; A9270-GY; J2300; J2590; J3010; J7120

== ENCOUNTER 2018-12-17 14:08 | Emergency (ER) | payer MEDICAID ==
[2018-12-17 14:30] VITALS: BP 119/67; PULSE 91
[2018-12-17] MEDS ORDERED: FLU Vacc QS2019-20(6MOS+)/PF 60 MCG/0.5 ML SYRINGE IM ONE (14:45)
[2018-12-17] MEDS ORDERED: Ketorolac 60 MG/2 ML SDV IM ONE (15:28)
[2018-12-17] MEDS ORDERED: Orphenadrine 100 MG Tab.ER PO ONE (15:28)
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
--- NOTE | 2018-12-17 16:10 | CT ---
CT cervical spine Technique: Multiple axial sections were obtained from above C1 inferiorly to the bottom of T2. Reconstructed sagittal and coronal images were reviewed. Findings: Mild disc space narrowing is noted at C5-C6 with anterior osteophytes and small posterior osteophytes. Asymmetric osteophytes are noted posterolaterally on the right side at C6-C7. No fracture is seen. No bony central canal stenosis is seen. Osteophytes on the right side at C6-C7 causes moderate right-sided neural foraminal stenosis. Other neural foramina are felt to be patent. No abnormal subluxation is seen. Slight degenerative spurring is noted within the uncovertebral joints at C5-C6 on the left side C6-C7 on the right side. Impression: 1. Degenerative change as noted above. Spurring at C6-C7 projects into the origin of the right neural foramina causing moderate right-sided neural foraminal stenosis. 2. Nothing acute is appreciated. Diagnostic code #3
[2018-12-17] MEDS ORDERED: traMADol 50 MG Tab PO ONE (16:57)
== END 2018-12-17 17:54 | disposition home or self-care (01) ==
LOC: JD.ED 14:08
DX: S13.9XXA Sprain of joints and ligaments of unspecified parts of neck, initial encounter (principal); F17.210 Nicotine dependence, cigarettes, uncomplicated; Z23 Encounter for immunization; X58.XXXA Exposure to other specified factors, initial encounter
CPT/HCPCS: 72125; 90471; 90686; 96372; 99283; A9270; J1885; G0008

== ENCOUNTER 2020-07-16 20:42 | Emergency (ER) | payer MEDICAID ==
[2020-07-16 21:02] VITALS: BP 130/84; PULSE 105
[2020-07-16] MEDS ORDERED: Orphenadrine 100 MG Tab.ER PO ONE (21:06)
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
[2020-07-16] MEDS: HYDROmorphone 1 MG/ML Syringe IM ONE ×2 (21:13→21:21)
[2020-07-16] MEDS ORDERED: HYDROmorphone 1 MG/ML Syringe ONE (21:17)
--- NOTE | 2020-07-18 17:03 | CT ---
CT cervical spine Technique: Multiple axial sections were obtained from above C1 inferiorly to the mid T3 level. Reconstructed coronal and sagittal images were obtained. Comparison: Prior CT cervical spine study of 12/17/18. Findings: Scoliosis is noted. Mild kyphosis is also noted. Mild disc space narrowing is noted at C5-6 and lesser at C6-7. Slight degenerative change is seen within the uncovertebral joints at C5-6. No neural foraminal stenosis or central canal stenosis is appreciated. No acute fracture or subluxation is appreciated. Impression: 1. Slight kyphosis and scoliosis. 2. Mild degenerative change as noted above. 3. No acute fracture or subluxation is seen. Diagnostic code #2 I agree with preliminary report from [facility] finalized on 07/16/20, 11:33 PM CDT, code 1
== END 2020-07-16 23:00 | disposition home or self-care (01) ==
LOC: JD.ED 20:42
DX: S13.4XXA Sprain of ligaments of cervical spine, initial encounter (principal); W01.0XXA Fall on same level from slipping, tripping and stumbling without subsequent striking against object, initial encounter
CPT/HCPCS: 72125; 96372; 99283; A9270; J1170

== ENCOUNTER 2021-07-30 20:18 | Emergency (ER) | payer MEDICAID ==
[2021-07-30 20:44] VITALS: BP 115/78; PULSE 90
== END 2021-07-30 21:00 | disposition left against medical advice (07) ==
LOC: JD.ED 20:18
DX: O99.892 Other specified diseases and conditions complicating childbirth (principal); R10.30 Lower abdominal pain, unspecified; Z3A.14 14 weeks gestation of pregnancy; Z79.899 Other long term (current) drug therapy
CPT/HCPCS: 99283

== ENCOUNTER 2022-01-19 04:39 | Inpatient (IN) | payer MEDICAID ==
[~2022-01-19 04:39] MED LIST: Sodium Chloride 0.9% 10 ML Syringe FLUSH PRN
[2022-01-19] MEDS ORDERED: Citric Acid/Sodium Citrate Solution 30 ML Cup PO ONE (05:30)
[2022-01-19] MEDS ORDERED: Metoclopramide 10 MG/2 ML SDV IVPUSH ONE (05:30)
[2022-01-19] MEDS ORDERED: Bupivacaine 0.5% 30 ML SDV ONE (06:55)
[2022-01-19] MEDS ORDERED: fentaNYL 100 MCG/2 ML SDV ONE (06:56)
[2022-01-19] MEDS ORDERED: Morphine PF 10 MG/10 ML SDV ONE (06:56)
[2022-01-19] MEDS ORDERED: ceFAZolin 2 GM Vial ONE (06:59)
[2022-01-19] MEDS ORDERED: ceFAZolin 2 GM in Sodium Chloride 0.9% 50 ML IV ONE (07:00)
[2022-01-19] MEDS ORDERED: Oxytocin/Lactated Ringers 10 UNIT/1,000 ML BAG IV SCH (07:00)
[2022-01-19] MEDS ORDERED: Citric Acid/Sodium Citrate Solution 30 ML Cup ONE (07:01)
[2022-01-19] MEDS ORDERED: Metoclopramide 10 MG/2 ML SDV ONE (07:02)
[2022-01-19] MEDS ORDERED: Lactated Ringers 2,000 ML ONE (07:03)
[2022-01-19] MEDS: Lactated Ringers 1,000 ML IV SCH ×3 (07:13→09:15)
[2022-01-19] MEDS ORDERED: Dexmedetomidine 200 MCG/2 ML SDV ONE (07:57)
[2022-01-19] MEDS ORDERED: Lactated Ringers 1,000 ML ONE (08:00)
[2022-01-19] MEDS ORDERED: Ondansetron 4 MG/2 ML SDV ONE (08:00)
[2022-01-19] MEDS ORDERED: Phenylephrine HCl In 0.9% NaCl 1 MG/10 ML Vial ONE (08:07)
[2022-01-19] MEDS ORDERED: Oxytocin 10 Units/1 ML SDV ONE (08:10)
[2022-01-19] MEDS ORDERED: Lidocaine 1% 5 ML VIAL ONE (08:17)
[2022-01-19] MEDS ORDERED: Ketorolac 30 MG/ML SDV ONE (08:29)
[2022-01-19] MEDS ORDERED: fentaNYL 100 MCG/2 ML SDV IVPUSH PRN (08:33)
[2022-01-19] MEDS ORDERED: diphenhydrAMINE 50 MG/ML SDV IVPUSH PRN ×2 (08:33→09:46)
[2022-01-19] MEDS ORDERED: Ondansetron 4 MG/2 ML SDV IVPUSH PRN (08:33)
[2022-01-19] MEDS ORDERED: Sodium Chloride 0.9% 10 ML Syringe FLUSH SCH (09:00)
[2022-01-19] MEDS ORDERED: Naloxone 0.4 MG/ML SDV IVPUSH PRN (09:46)
[2022-01-19] MEDS ORDERED: Dextrose 5%-Lactated Ringers 1,000 ML IV SCH (09:46)
[2022-01-19] MEDS ORDERED: ePHEDrine 50 MG/ML SDV IVPUSH PRN (09:46)
[2022-01-19] MEDS: Ibuprofen 600 MG Tab PO PRN (16:43)
[2022-01-19] MEDS: Acetaminophen/oxyCODONE 325-5 MG Tab PO PRN (16:44)
[2022-01-20] MEDS: Acetaminophen/oxyCODONE 325-5 MG Tab PO PRN ×5 (00:19→21:33)
[2022-01-20] MEDS: Ibuprofen 600 MG Tab PO PRN ×3 (06:47→20:03)
[2022-01-21] MEDS: Ibuprofen 600 MG Tab PO PRN (02:26)
[2022-01-21] MEDS ORDERED: Docusate Sodium 100 MG Cap PO PRN (02:27)
[2022-01-21] MEDS: Acetaminophen/oxyCODONE 325-5 MG Tab PO PRN (03:53)
[2022-01-21 09:22] VITALS: BP 128/73; PULSE 66
== END 2022-01-21 11:08 | disposition home or self-care (01) | DRG 788 ==
LOC: JD.OB 04:39
PROVIDERS: ADMIT Obstetrics & Gynecology; ATTEND Obstetrics & Gynecology
PROC: 10D00Z1 Extraction of Products of Conception, Low, Open Approach (ICD-10-PCS; principal; 2022-01-19)
DX: O24.414 Gestational diabetes mellitus in pregnancy, insulin controlled (principal); Z87.891 Personal history of nicotine dependence; Z37.0 Single live birth; Z3A.38 38 weeks gestation of pregnancy
CPT/HCPCS: 36415; 59025; 82947; 85025; 86592; 86803; 86850; 86900; 86901; A9270-GY; J0690; J1885; J2274; J2405; J2590; J2765; J3010; J3490; J7120; J7121

== ENCOUNTER 2022-01-23 17:15 | Emergency (ER) | payer MEDICAID ==
[2022-01-23 18:39] LABS: ESTIMATED GFR 115 mL/min (>60)
[2022-01-23] MEDS ORDERED: Sodium Chloride 0.9% 10 ML Syringe FLUSH PRN (18:40)
[2022-01-23] MEDS ORDERED: Sodium Chloride 0.9% 1,000 ML IV ONE (18:54)
[2022-01-23] MEDS ORDERED: Ketorolac 30 MG/ML SDV IVPUSH ONE (21:05)
[2022-01-23 21:30] VITALS: BP 139/97; PULSE 81
[2022-01-23] MEDS ORDERED: Ketorolac 30 MG/ML SDV IM ONE (21:31)
== END 2022-01-23 21:40 | disposition home or self-care (01) ==
LOC: JD.ED 17:15
DX: O72.1 Other immediate postpartum hemorrhage (principal); Z87.891 Personal history of nicotine dependence
CPT/HCPCS: 36415; 76830; 80053; 82947; 85025; 86850; 86900; 86901; 96360; 96372; 99284; J1885; J3490; J7030

== ENCOUNTER 2024-10-31 04:09 | Emergency (ER) | payer SELFPAY ==
[2024-10-31] MEDS: Ondansetron 4 MG Tab.DIS PO ONE (04:43)
[2024-10-31 05:37] LABS: BASOPHILS ABSOLUTE AUTO 0.1 K/mm3 (0.0-0.2); BASOPHILS PERCENT AUTO 0.9 % (0.0-1.0); EOSINOPHILS ABSOLUTE AUTO 0.5 K/mm3 (0.0-0.4); EOSINOPHILS PERCENT AUTO 5.8 % (0.0-6.0); IMMATURE GRAN ABSOLUTE AUTO 0.01 K/mm3 (0.00-0.05); IMMATURE GRAN PERCENT AUTO 0.1 % (0.0-0.4); LYMPHOCYTES ABSOLUTE AUTO 2.0 K/mm3 (1.0-4.8); LYMPHOCYTES PERCENT AUTO 25.0 % (24.0-44.0); MEAN PLATELET VOLUME 9.6 fl (9.4-12.3); MONOCYTES ABSOLUTE AUTO 0.8 K/mm3 (0.0-0.8); MONOCYTES PERCENT AUTO 10.0 % (0.0-8.0); NEUTROPHILS ABSOLUTE AUTO 4.6 K/mm3 (1.8-7.7); NEUTROPHILS PERCENT AUTO 58.2 % (41.0-71.0); NRBC ABSOLUTE 0.00 (0.00-0.02); NRBC PERCENT 0.0 % (0.0-0.2); PLATELET COUNT,PLT 314 K/mm3 (150-400); RED BLOOD CELL COUNT 3.86 M/mm3 (4.10-5.30); WHITE BLOOD CELL COUNT,WBC 7.81 K/mm3 (3.9-11.3)
[2024-10-31 06:13] LABS: A/G RATIO 1.0 (1-2); ALANINE AMINOTRANSFERASE,ALT 22.0 U/L (14-59); ASPARTATE AMNIOTRANSFERASE,AST 12.0 U/L (15-37); BILIRUBIN TOTAL 0.4 mg/dL (0.2-1.0); BLOOD UREA NITROGEN,BUN 19.0 mg/dL (7-18); CARBON DIOXIDE,CO2 27.0 mEq/L (21-32); CHLORIDE,CL 103.0 mEq/L (98-107); CREATININE 0.7 mg/dL (0.55-1.02); EST CRCL DRUG DOSING (CG) 112.76 mL/min; ESTIMATED GFR 113.0 mL/min (>60); GLUCOSE RANDOM 107.0 mg/dL (70-99); POTASSIUM,K 4.0 mEq/L (3.5-5.1); PROTEIN TOTAL,TP 7.2 g/dl (6.4-8.2); SODIUM,NA 138.0 mEq/L (136-145)
[2024-10-31] MEDS: Acetaminophen/HYDROcodone 108-2.5 MG/5 ML Soln 15 ML UD Cup PO ONE (06:43)
[2024-10-31 06:57] VITALS: BP 128/69; PULSE 69
== END 2024-10-31 06:56 | disposition home or self-care (01) ==
LOC: JD.ED 04:09
DX: K02.9 Dental caries, unspecified (principal); F17.200 Nicotine dependence, unspecified, uncomplicated; Z86.16 Personal history of COVID-19; Z79.899 Other long term (current) drug therapy
CPT/HCPCS: 36415; 70486; 80053; 85025; 87428; 99284; A9270